=== PATIENT | male | born 1940 | race Caucasian/White ===

== ENCOUNTER 2018-02-26 07:48 | Day surgery (SDC) | payer OTHER ==
[2018-02-26 08:01] VITALS: TEMP 97.6
[2018-02-26] MEDS ORDERED: LIDOCAINE 1% 20 ML MDV ID STA (08:04)
[2018-02-26] MEDS ORDERED: VERSED ONE (09:35)
[2018-02-26] MEDS ORDERED: DIPRIVAN 20 ML VIAL IVP ONE (09:35)
[2018-02-26 11:12] VITALS: BP 167/91
--- NOTE | 2018-02-27 09:28 | OP ---
INDICATIONS FOR PROCEDURE: 77-year-old gentleman presents for colonoscopy exam. He has a history of adenomatous polyps with his last colonoscopy three years ago. MEDICATIONS: SEE ANESTHESIA NOTES. PROCEDURE: COLONOSCOPY, SNARE POLYPECTOMY. REPORT: The risks, benefits, alternatives and limitations were discussed in detail with the patient. Informed consent was obtained. After adequate sedation was achieved, digital rectal exam revealed good tone, no masses. The colonoscope was introduced into the rectum and advanced under direct visual guidance to the cecum. The cecum was identified by the appendiceal orifice and IC valve. In the cecum there was two polyps. One was slightly raised and about 8 to 9 mm in length. The other one was semi sessile about 6 mm. Both polyps were removed by snare technique and retrieved. I then withdrew the scope in a circumferential manner examining the mucosa quite carefully. I looked on the proximal and distal side of folds and flexures as best as possible. I retroflexed the scope in the right colon and left colon to increase visualization. On the distal side of the hepatic flexure there was a semi sessile 7 mm polyp that I removed by snare technique. There were a few diverticula around the hepatic flexure and scattered diverticulosis throughout the left colon. No other abnormalities were noted including on retroflex view of the anal canal. The prep was good. The withdrawal time was 13 min and 43 seconds. The patient tolerated the procedure well with stable vital signs and pulse oximetry throughout. IMPRESSION: 1. THREE (3) POLYPS REMOVED 2. DIVERTICULOSIS RECOMMENDATIONS: 1. High fiber diet 2. Office visit as needed 3. Await pathology results 4. Surveillance colonoscopy examination again if he is clinically well, sooner if there are any signs or symptoms to indicate otherwise. cc: Dr. Bruce Wylie [facility] [address] [place] [address] , [address] [place] [address] [facility]
== END 2018-02-26 10:45 | disposition home or self-care (01) ==
LOC: SURG 07:48
PROVIDERS: ATTEND Internal Medicine Gastroenterology
DX: Z09 Encounter for follow-up examination after completed treatment for conditions other than malignant neoplasm (principal); Z86.010 Personal history of colon polyps; D12.0 Benign neoplasm of cecum; D12.3 Benign neoplasm of transverse colon; K57.30 Diverticulosis of large intestine without perforation or abscess without bleeding